=== PATIENT | male | born 1950 | race Caucasian/White ===

== ENCOUNTER 2018-11-29 12:31 | Emergency (ER) | payer MEDICARE, OTHER ==
--- NOTE | 2018-11-29 12:36 | ERPHSYRPT ---
- History of Present Illness Time Seen by Provider: 11/29/18 12:36 Source: patient Exam Limitations: no limitations Physician History: 68 y/o white male presents to ED with left eye pain after he rubbed it when he felt a piece of chicken hit his left eye while driving in his car. occurred dining room captain. Timing/Duration: today Location: left eye Severity: mild Apparent Injury: possibly Associated Symptoms: pain, burning, sensitivity to light, redness, foreign body sensation, No eyelid swelling, No decreased vision, No blurred vision, No double vision Visual Assistive Devices: None Chemical Exposure: No Welding Arc/Tanning Bed Exposure: No Allergies/Adverse Reactions: No Known Drug Allergies Allergy (Verified 11/29/18 12:46) Home Medications: No Reportable Medications [No Reported Medications] 11/29/18 [History] - Review of Systems Constitutional: No Symptoms Eyes: Eye Redness (left), Photophobia, Foreign Body Sensation Ears, Nose, & Throat: No Symptoms Respiratory: No Symptoms Cardiac: No Symptoms Abdominal/Gastrointestinal: No Symptoms Genitourinary Symptoms: No Symptoms Musculoskeletal: No Symptoms Skin: No Symptoms Neurological: No Symptoms Psychological: No Symptoms Endocrine: No Symptoms Hematologic/Lymphatic: No Symptoms Immunological/Allergic: No Symptoms All Other Systems: Reviewed and Negative - Past Medical History Pertinent Past Medical History: No Neurological History: No Pertinent History ENT History: No Pertinent History Cardiac History: No Pertinent History Respiratory History: No Pertinent History Endocrine Medical History: No Pertinent History Musculoskeletal History: No Pertinent History GI Medical History: No Pertinent History History: No Pertinent History - Past Surgical History Past Surgical History: No Neuro Surgical History: No Pertinent History Cardiac: No Pertinent History Respiratory: No Pertinent History Gastrointestinal: No Pertinent History Genitourinary: No Pertinent History Musculoskeletal: No Pertinent History Male Surgical History: No Pertinent History - Nursing Vital Signs Nursing Vital Signs: Initial Vital Signs Pulse Rate 110 H 11/29/18 12:40 Blood Pressure 172/92 11/29/18 12:40 O2 Sat by Pulse Oximetry 96 11/29/18 12:40 Pain Scale Pain Intensity 5 - Physical Exam General Appearance: no apparent distress, alert, anxiety Eye Exam: right eye: normal inspection, left eye: PERRL, EOMI, corneal abrasion (10- 11 oclock ) Ears, Nose, Throat Exam: normal ENT inspection, moist mucous membranes Neck Exam: normal inspection, non-tender, supple, full range of motion Respiratory Exam: airway intact, No chest tenderness, No respiratory distress Gastrointestinal Exam: No tenderness Extremity Exam: normal inspection, normal range of motion, pelvis stable Neurologic: alert, oriented x 3, cooperative, roll tender II-XII nml as tested Skin Exam: normal color, warm, dry Lymphatic: No adenopathy SpO2 Interpretation: normal O2 Delivery: Room Air - Course Nursing assessment & vital signs reviewed: Yes Ordered Tests: Medication Summary Discontinued Medications Generic Name Dose Route Start Last Admin Trade Name Carlos PRN Reason Stop Dose Admin Gentamicin Sulfate Confirm 11/29/18 12:45 Garamycin 0.3% Ophth Stephanie Administered 11/29/18 12:46 Dose 5 ml .ROUTE .STK-MED ONE Gentamicin Sulfate 5 ml 11/29/18 12:51 Garamycin 0.3% Ophth Stephanie OP 11/29/18 12:52 STAT ONE Tetracaine HCl Confirm 11/29/18 12:45 Tetracaine 0.5% Steri-Unit Stephanie Administered 11/29/18 12:46 Dose 4 ml OP .STK-MED ONE Tetracaine HCl 4 ml 11/29/18 12:50 Tetracaine 0.5% Steri-Unit Stephanie OP 11/29/18 12:51 STAT STA - Progress Progress: improved Counseled pt/family regarding: diagnosis, need for follow-up - Departure Departure Disposition: Home Clinical Impression: Left corneal abrasion, Left conjunctivitis Condition: Stable Critical Care Time: No Additional Instructions: may irrigate left eye using over the counter refresh solution. continue using antibiotic eye drops for 4 days-one drop into left eye every 4 hours while awake. follow up with ophthamologist for persistent or worsening symptoms
[2018-11-29] MEDS ORDERED: GARAMYCIN 0.3% OPHTH SOL ONE (12:45)
[2018-11-29] MEDS ORDERED: TETRACAINE 0.5% STERI-UNIT SOL OP ONE (12:45)
[2018-11-29] MEDS ORDERED: TETRACAINE 0.5% STERI-UNIT SOL OP STA (12:50)
[2018-11-29] MEDS ORDERED: GARAMYCIN 0.3% OPHTH SOL OP ONE (12:51)
[2018-11-29 13:16] VITALS: BP 168/77; PULSE 88; O2SAT 95
== END 2018-11-29 13:19 | disposition home or self-care (01) ==
LOC: ED 12:31
DX: S05.02XA Injury of conjunctiva and corneal abrasion without foreign body, left eye, initial encounter (principal); S00.202A Unspecified superficial injury of left eyelid and periocular area, initial encounter; W20.8XXA Other cause of strike by thrown, projected or falling object, initial encounter; Y93.89 Activity, other specified; H10.9 Unspecified conjunctivitis
CPT/HCPCS: 99283; A9270-GY

== ENCOUNTER 2023-06-06 02:43 | Emergency (ER) | payer MEDICARE, OTHER ==
[2023-06-06 03:08] VITALS: RESP 20; TEMP 98
[2023-06-06] MEDS ORDERED: NORCO 5/325 MG ONE (03:16)
[2023-06-06] MEDS: NORCO 5/325 MG PO ONE (03:17)
--- NOTE | 2023-06-06 03:19 | ERPHSYRPT ---
- History of Present Illness Time Seen by Provider: 06/06/23 03:02 Source: patient Exam Limitations: no limitations Patient Subjective Stated Complaint: pt states that since approx 1999 on Tuesday06/04/23 evening he has had a headache to his bilat occipital, crown of head, top of head forming a nepali like pattern that radiates down to posterior upper neck. states that last night he was unable to get to sleep then dozed for a while and was woken up by the pain which is at its most severe at this time. Triage Nursing Assessment: pt ambulated into room 8 independently with slow steady gait after standing on scale for weight acquisition. pt is alert and oriented times three, very [id number], able to speak in complete sentences, able to move all extremities within normal limits without weakness, and with resp even and unlabored. bilat pupils are 2mm, equal, round, and reactive to light- when pupils are shielded from light for several seconds size increased to approx 3mm. denies sob, difficulty breathing, lightheadedness, dizziness, n/v, diarrhea, change in appetite, difficulty with urination or bowel elimination, weakness, numbness, or tingling. bilat upper and lower extremities with strength, color, cap refill, and sensation all within normal limits. Physician History: Since about 31 hours ago pt has had a constant sharp/dull generalized headache up to 9/10 in severity; denies fever, cough, chest pain, shortness of air, nausea, vomiting. Allergies/Adverse Reactions: No Known Drug Allergies Allergy (Verified 06/06/23 02:49) Home Medications: Lisinopril 5 mg [Zestril 5 MG] 5 mg PO HS 06/06/23 [History] Metformin HCl 500 mg [Glucophage 500 MG] 2 tab PO BIDWM 06/06/23 [History] Semaglutide [Ozempic] 0.25 mg SQ WEEKLY 06/06/23 [History] Hx Tetanus, Diphtheria Vaccination/Date Given: Yes Hx Influenza Vaccination/Date Given: No Hx Pneumococcal Vaccination/Date Given: No Immunizations Up to Date: Yes Travel Risk - International Travel Have you traveled outside of the country in past 3 weeks: No - Coronavirus Screening Are you exhibiting any of the following symptoms?: No Close contact with a COVID-19 positive Pt in past 14-21 Days: No - Vaccine Status Have you recieved a Covid-19 vaccination: No - Review of Systems Constitutional: No Fever Respiratory: No Cough, No Dyspnea Cardiac: No Chest Pain Abdominal/Gastrointestinal: No Nausea, No Vomiting Neurological: Headache - Past Medical History Pertinent Past Medical History: Yes Neurological History: No Pertinent History ENT History: No Pertinent History Cardiac History: Hypertension Respiratory History: No Pertinent History Endocrine Medical History: Diabetes Type II Musculoskeletal History: No Pertinent History GI Medical History: No Pertinent History History: No Pertinent History Psycho-Social History: No Pertinent History Male Reproductive Disorders: No Pertinent History - Past Surgical History Past Surgical History: Yes Neuro Surgical History: No Pertinent History Cardiac: No Pertinent History Respiratory: No Pertinent History Gastrointestinal: No Pertinent History Genitourinary: No Pertinent History Musculoskeletal: Joint Replacement Male Surgical History: No Pertinent History Other Surgical History: left hip and thigh - Social History Smoking Status: Never smoker Exposure to second hand smoke: No Drug Use: none Patient Lives Alone: Yes - Nursing Vital Signs Nursing Vital Signs: Initial Vital Signs Pulse Rate 104 H 06/06/23 02:50 Respiratory Rate 18 06/06/23 02:50 Blood Pressure 186/97 06/06/23 02:50 O2 Sat by Pulse Oximetry 96 06/06/23 02:50 Pain Scale Pain Intensity 6 - Physical Exam General Appearance: alert Eye Exam: other (pupils 2mm diameter; eomi) Ears, Nose, Throat Exam: TMs normal Neck Exam: normal inspection Respiratory Exam: lungs clear Cardiovascular Exam: normal heart sounds Gastrointestinal/Abdominal Exam: normal bowel sounds Extremity Exam: normal range of motion Mental Status Exam: alert, oriented x 3, cooperative cloth tester Exam: normal speech Motor/Sensory Exam: no motor deficit, no sensory deficit Skin Exam: warm, dry SpO2 Interpretation: normal SpO2: 96 O2 Delivery: Room Air - Course Nursing assessment & vital signs reviewed: Yes - CT Exams Head CT Interpretation: Tele-radiologist Report (No acute cerebral insult on CT bases. 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 Brain senile involutional changes. The senile changes with microvascular changes are interval new findings.) Ordered Tests: Active Orders 24 hr Category Date Time Status HEAD WITHOUT CONTRAST [CT] Stat Exams 06/06/23 03:13 Completed Medication Summary Discontinued Medications Generic Name Dose Route Start Last Admin Trade Name Freq PRN Reason Stop Dose Admin Hydrocodone Bitart/Acetaminophen 2 tab 02/12/24 03:14 06/06/23 03:17 Hydrocodone/Apap 5/325 1 Tab Tablet PO 06/06/23 03:15 2 tab STAT ONE Administration Hydrocodone Bitart/Acetaminophen Confirm 06/06/23 03:16 Hydrocodone/Apap 5/325 1 Tab Tablet Administered 06/06/23 03:17 Dose 2 tab .ROUTE .STK-MED ONE Nitroglycerin 0.4 mg 06/06/23 03:18 06/06/23 03:21 Nitroglycerin 0.4 Mg (Ed) 0.4 Mg Tab.Subl SL 06/06/23 03:19 Not Given STAT ONE - Progress Progress: improved Counseled pt/family regarding: diagnosis, need for follow-up, rad results Medical Desision Making - Diagnostic Testing Diagnostic test were ordered, analyzed, and reviewed by me: Yes Radiological Interpretation: Teleradiologist Report - Departure Departure Disposition: Home Clinical Impression: Headache Condition: Stable Critical Care Time: No Referrals: LILIYA CONCEPCION MD [Primary Care Provider] - Follow up/PCP as directed Additional Instructions: Follow up with private doctor tomorrow.
[2023-06-06] MEDS: Nitrostat 0.4 MG (ED) SL ONE (03:21)
--- NOTE | 2023-06-06 04:04 | XRAY ---
CLINICAL HISTORY: pain TECHNIQUE: Axial non-contrast CT scan of the brain was performed from the skull base to the high parietal region. COMPARISON: 12/15/2007 CT. FINDINGS: Exaggerated periventricular white matter hypodensity denoting hypoperfusion. The ventricular system and cortical sulci as well as basal cisterns are prominent consistent with senile changes. No calvarial fracture lines or depressed bony segments. No intra or extra axial areas of acute blood densities or collections. No midline shifts or deformity. Foci of faint right basal ganglia calcifications. Otherwise, unremarkable posterior fossa structures namely brainstem and cerebellum. Mild deviation of the nasal septum to the right side. IMPRESSION: 1. No acute cerebral insult on CT bases. 2. 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 3. Brain senile involutional changes. 4. The senile changes with microvascular changes are interval new findings. Electronically Signed by: Flavio Esposito MD. (06/06/2023 03:59:56 EST)
[2023-06-06 04:08] VITALS: BP 143/79; PULSE 99
[2023-06-06 04:21] VITALS: O2SAT 96
== END 2023-06-06 04:32 | disposition home or self-care (01) ==
LOC: ED 02:43
DX: R51.9 Headache, unspecified (principal); I10 Essential (primary) hypertension; E11.9 Type 2 diabetes mellitus without complications; Z79.84 Long term (current) use of oral hypoglycemic drugs; Z79.85 Long-term (current) use of injectable non-insulin antidiabetic drugs; Z79.899 Other long term (current) drug therapy; Z28.310 Unvaccinated for COVID-19
CPT/HCPCS: 70450; 99283; A9270-GY

== ENCOUNTER 2024-11-19 01:17 | Emergency (ER) | payer MEDICARE ==
--- NOTE | 2024-11-19 01:24 | ERPHSYRPT ---
- History of Present Illness Time Seen by Provider: 11/19/24 01:24 Source: patient, family Exam Limitations: no limitations Physician History: This is a 74-year-old white male patient who arrives by private vehicle and is a patient Dr. Goel with a complaint of lightheadedness and weakness for 3 days. Patient recalls stretching out his back and neck when he felt a pop in his left neck. He states he noticed dizziness at that time. Patient family member stated that this patient has had intermittent dizziness and lightheadedness for several years. Patient does have a history of hypertension and hyperlipidemia as well as diabetes. Patient states that he stopped his diabetic medication approximately 8 months ago and is using a concoction that is supposed to help control blood sugar that you drink. Patient denies chest pain. Patient denies shortness of breath. Patient denies headache. He does not have a history of head injury. He has had no nausea vomiting or diarrhea symptoms. Timing/Duration: day(s) (3) Severity: mild Associated Symptoms: weakness, No nausea, No vomiting, No abdominal pain, No shortness of breath, No chest pain, No headaches Allergies/Adverse Reactions: No Known Drug Allergies Allergy (Verified 11/19/24 01:22) Home Medications: Atorvastatin Calcium 20 mg PO DAILY 11/19/24 [History] Empagliflozin [Jardiance] 10 mg PO DAILY 11/19/24 [History] Hx Tetanus, Diphtheria Vaccination/Date Given: Yes Hx Influenza Vaccination/Date Given: No Hx Pneumococcal Vaccination/Date Given: No Travel Risk - International Travel Have you traveled outside of the country in past 3 weeks: No - Emerging Infectious Disease Are you exhibiting symptoms associated with any current EIDs: No - Review of Systems Constitutional: Weakness Eyes: No Symptoms Ears, Nose, & Throat: No Symptoms Respiratory: No Symptoms Cardiac: No Symptoms Abdominal/Gastrointestinal: No Symptoms Genitourinary Symptoms: No Symptoms Musculoskeletal: No Symptoms Neurological: Dizziness, Other (Lightheadedness) Psychological: No Symptoms Endocrine: No Symptoms Hematologic/Lymphatic: No Symptoms Immunological/Allergic: No Symptoms All Other Systems: Reviewed and Negative - Past Medical History Pertinent Past Medical History: Yes Neurological History: No Pertinent History ENT History: No Pertinent History Cardiac History: Hypertension Respiratory History: No Pertinent History Endocrine Medical History: Diabetes Type II Musculoskeletal History: No Pertinent History GI Medical History: No Pertinent History History: No Pertinent History Psycho-Social History: No Pertinent History Male Reproductive Disorders: No Pertinent History - Past Surgical History Past Surgical History: Yes Neuro Surgical History: No Pertinent History Cardiac: No Pertinent History Respiratory: No Pertinent History Gastrointestinal: No Pertinent History Genitourinary: No Pertinent History Musculoskeletal: Joint Replacement Male Surgical History: No Pertinent History Other Surgical History: left hip and thigh - Social History Smoking Status: Never smoker Exposure to second hand smoke: No Drug Use: none Patient Lives Alone: Yes - Nursing Vital Signs Nursing Vital Signs: Initial Vital Signs Temperature 97.4 F 11/19/24 01:25 Pulse Rate 98 H 11/19/24 01:25 Respiratory Rate 18 11/19/24 01:25 Blood Pressure 175/90 11/19/24 01:25 O2 Sat by Pulse Oximetry 96 11/19/24 01:25 Pain Scale Pain Intensity 0 - Physical Exam General Appearance: no apparent distress, alert Eye Exam: PERRL/EOMI, eyes nml inspection Ears, Nose, Throat Exam: normal ENT inspection, moist mucous membranes Neck Exam: normal inspection, non-tender, supple, full range of motion Respiratory Exam: normal breath sounds, lungs clear, airway intact, No chest tenderness, No respiratory distress Cardiovascular Exam: regular rate/rhythm, normal heart sounds, normal peripheral pulses Gastrointestinal/Abdomen Exam: soft, normal bowel sounds, No tenderness Rectal Exam: not done Back Exam: normal inspection, normal range of motion, No CVA tenderness, No vertebral tenderness Extremity Exam: normal inspection, normal range of motion, pelvis stable Neurologic Exam: alert, oriented x 3, cooperative, medical collections representative II-XII nml as tested, normal mood/affect, nml cerebellar function, nml station & gait, sensation nml Skin Exam: normal color, warm, dry Lymphatic Exam: No adenopathy SpO2 Interpretation: normal O2 Delivery: Room Air - Course Nursing assessment & vital signs reviewed: Yes EKG Interpreted by Me: RATE (94), Right [place] Deviation (Borderline), NORMAL INTERVALS, NORMAL QRS, Other (QTc 455. No acute ischemia) Ordered Tests: Active Orders 24 hr Category Date Time Status Engineering Director STAT Care 11/19/24 01:50 Active EKG-ER Only STAT Care 11/19/24 01:49 Active IV Insertion STAT Care 11/19/24 01:49 Active HEAD WITHOUT CONTRAST [CT] Stat Exams 11/19/24 01:49 Completed CBC W DIFF Stat Lab 11/19/24 01:59 Completed CMP Stat Lab 11/19/24 01:59 Completed ETHYL ALCOHOL Stat Lab 11/19/24 01:59 Completed MAGNESIUM Stat Lab 11/19/24 01:59 Completed TROPONIN Q4H Lab 11/19/24 01:59 Completed TROPONIN Q4H Lab 11/19/24 06:00 Ordered TROPONIN Q4H Lab 11/19/24 10:00 Ordered UA W/RFX UR CULTURE Stat Lab 11/19/24 04:12 Completed Medication Summary Generic Name Dose Route Start Last Admin Trade Name Freq PRN Reason Stop Dose Admin Sodium Chloride 1,000 mls @ 100 mls/hr 11/19/24 02:00 11/19/24 02:34 Sodium Chloride 0.9% 1000 Ml IV 12/19/24 01:59 100 mls/hr .Q10H JAME Administration Discontinued Medications Generic Name Dose Route Start Last Admin Trade Name Freq PRN Reason Stop Dose Admin Enalaprilat 1.25 mg 11/19/24 02:34 11/19/24 03:20 Enalaprilat 2.5 Mg Injection IV 11/19/24 02:35 Not Given STAT ONE Enalaprilat Confirm 11/19/24 02:48 Enalaprilat 2.5 Mg Injection Administered 11/19/24 02:49 Dose 2.5 mg IV .STK-MED ONE Meclizine HCl 25 mg 11/19/24 03:05 11/19/24 03:22 Meclizine Hcl 25 Mg Tablet PO 11/19/24 03:06 25 mg STAT ONE Administration Meclizine HCl Confirm 11/19/24 03:21 Meclizine Hcl 25 Mg Tablet Administered 11/19/24 03:22 Dose 25 mg .ROUTE .STK-MED ONE Lab/Rad Data: Laboratory Result Diagrams 11/19/24 01:59 11/19/24 01:59 Laboratory Results 11/19/24 11/19/24 11/19/24 Range/Units 04:12 01:59 01:59 WBC (4.23-9.07) x10^3/uL RBC (4.63-6.08) x10^6/uL Hgb (13.7-17.5) g/dL Hct (40.1-51.0) % MCV (79.0-92.2) fL MCH (25.7-32.2) pg MCHC (32.3-36.5) g/dL RDW (11.6-14.4) % Plt Count (163-337) x10^3/uL MPV (9.4-12.4) fL Gran % (34.0-67.9) % Immature Gran % (Auto) (0.001-0.429) % Nucleat RBC Rel Count (0.00-0.2) % Eos # (Auto) (0.04-0.54) x10^3/uL Immature Gran # (Auto) (0.001-0.031) x10^3u/L Absolute Lymphs (auto) (1.32-3.57) x10^3/uL Absolute Monos (auto) (0.30-0.82) x10^3/uL Absolute Nucleated RBC (0.00-0.012) x10^3u/L Lymphocytes % (21.8-53.1) % Monocytes % (5.3-12.2) % Eosinophils % (0.8-7.0) % Basophils % (0.2-1.2) % Absolute Granulocytes (1.78-5.38) x10^3/uL Basophils # (0.01-0.08) x10^3/uL Sodium 136 (135-145) mmol/L Potassium 4.0 (3.5-5.1) mmol/L Chloride 102 (98-107) mmol/L Carbon Dioxide 27 (22-30) mmol/L Anion Gap 10.2 (5-15) MEQ/L BUN 26 H (9-20) mg/dL Creatinine 0.87 (0.66-1.25) mg/dL Estimated GFR 90.5 ML/MIN Glucose 290 H (74-106) mg/dL Calcium 9.4 (8.4-10.2) mg/dL Magnesium 1.7 (1.6-2.3) mg/dL Total Bilirubin 0.70 (0.2-1.3) mg/dL AST 26 (17-59) U/L ALT 27 (0-50) U/L Alkaline Phosphatase 121 (38-126) U/L Troponin I < 0.012 (0.000-0.033) ng/mL Serum Total Protein 6.8 (6.3-8.2) g/dL Albumin 3.9 (3.5-5.0) g/dL Urine Color Yellow (Yellow) Urine Appearance Clear (Clear) Urine pH 5.0 (4.6-8.0) Ur Specific [place] 1.025 (1.005-1.030) Urine Protein 100 A (Negative) Urine Glucose (UA) >=1000 A (Negative) mg/dL Urine Ketones Trace A (Negative) Urine Blood Trace (Negative) Urine Nitrite Negative (Negative) Urine Bilirubin Negative (Negative) Urine Urobilinogen 1.0 A (0.2) mg/dL Ur Leukocyte Esterase Negative (Negative) U Hyaline Cast (Auto) NONE SEEN (0-2) /LPF Urine Microscopic RBC 0-2 (0-5) /HPF Urine Microscopic WBC 0-2 (0-5) /HPF Ur Epithelial Cells None Seen (None Seen) /HPF Urine Bacteria None Seen (None Seen) /HPF Urine Culture Reflexed NO (NO) Ethyl Alcohol < 10 (0-10) mg/dL 11/19/24 Range/Units 01:59 WBC 7.8 (4.23-9.07) x10^3/uL RBC 4.99 (4.63-6.08) x10^6/uL Hgb 16.0 (13.7-17.5) g/dL Hct 46.0 (40.1-51.0) % MCV 92.2 (79.0-92.2) fL MCH 32.1 (25.7-32.2) pg MCHC 34.8 (32.3-36.5) g/dL RDW 13.1 (11.6-14.4) % Plt Count 181 (163-337) x10^3/uL MPV 11.1 (9.4-12.4) fL Gran % 63.5 (34.0-67.9) % Immature Gran % (Auto) 0.4 (0.001-0.429) % Nucleat RBC Rel Count 0.0 (0.00-0.2) % Eos # (Auto) 0.24 (0.04-0.54) x10^3/uL Immature Gran # (Auto) 0.03 (0.001-0.031) x10^3u/L Absolute Lymphs (auto) 1.90 (1.32-3.57) x10^3/uL Absolute Monos (auto) 0.66 (0.30-0.82) x10^3/uL Absolute Nucleated RBC 0.00 (0.00-0.012) x10^3u/L Lymphocytes % 24.2 (21.8-53.1) % Monocytes % 8.4 (5.3-12.2) % Eosinophils % 3.1 (0.8-7.0) % Basophils % 0.4 (0.2-1.2) % Absolute Granulocytes 4.98 (1.78-5.38) x10^3/uL Basophils # 0.03 (0.01-0.08) x10^3/uL Sodium (135-145) mmol/L Potassium (3.5-5.1) mmol/L Chloride (98-107) mmol/L Carbon Dioxide (22-30) mmol/L Anion Gap (5-15) MEQ/L BUN (9-20) mg/dL Creatinine (0.66-1.25) mg/dL Estimated GFR ML/MIN Glucose (74-106) mg/dL Calcium (8.4-10.2) mg/dL Magnesium (1.6-2.3) mg/dL Total Bilirubin (0.2-1.3) mg/dL AST (17-59) U/L ALT (0-50) U/L Alkaline Phosphatase (38-126) U/L Troponin I (0.000-0.033) ng/mL Serum Total Protein (6.3-8.2) g/dL Albumin (3.5-5.0) g/dL Urine Color (Yellow) Urine Appearance (Clear) Urine pH (4.6-8.0) Ur Specific [place] (1.005-1.030) Urine Protein (Negative) Urine Glucose (UA) (Negative) mg/dL Urine Ketones (Negative) Urine Blood (Negative) Urine Nitrite (Negative) Urine Bilirubin (Negative) Urine Urobilinogen (0.2) mg/dL Ur Leukocyte Esterase (Negative) U Hyaline Cast (Auto) (0-2) /LPF Urine Microscopic RBC (0-5) /HPF Urine Microscopic WBC (0-5) /HPF Ur Epithelial Cells (None Seen) /HPF Urine Bacteria (None Seen) /HPF Urine Culture Reflexed (NO) Ethyl Alcohol (0-10) mg/dL - Progress Progress: improved, re-examined Progress Note: 11/19/24 02:39 My medical decision making and the assignment of moderate complexity of this patient's medical issue today is based on review of the patient's past medical history, review the patient's medication list, reviewed patient drug allergy list, history present illness and physical findings on examination. The workup in this patient includes placement of intravenous line, infusion of low rate crystalloid, CBC, CMP, troponin level, twelve-lead EKG, urinalysis, ethyl alcohol level, CT scan of the head without contrast. Differential diagnosis includes but is not limited to anemia, arrhythmia, myocardial infarction, acute intracranial abnormality, dehydration, urinary tract infection, sinus infection 11/19/24 02:55 CT scan of the head without contrast was interpreted by the radiologist and I reviewed the impression. The impression states no acute abnormality detected in this plain CT scan of head. There are chronic microvascular ischemic changes. There is senile cortical atrophy. No change when compared to prior study dated 06/06/2023 Medical Desision Making - Independent Historian Additional History obtained from: Family - Risk of complications Low Risk: Low risk of morbidity from additional dx testing or treatment The pt has a mod risk of morbidity or mortality based on: Need for prescription drug management - Departure Departure Disposition: Home Clinical Impression: Dizziness, Hyperglycemia, Lightheadedness Condition: Stable Critical Care Time: No Referrals: RUBI GOEL [Primary Care Provider, [facility]] - Follow up/PCP as directed Additional Instructions: Drink plenty of fluids. Monitor your blood sugar more closely and take your blood sugar medicine as prescribed. Call your primary care provider today, 11/11/2024, to make arrangement for follow-up appointment for further evaluation management Prescriptions: Meclizine HCl 25 mg [Antivert 25 mg] 25 mg PO Q8H PRN #10 tablet PRN Reason: Dizziness
[2024-11-19 01:31] VITALS: TEMP 97.4
[2024-11-19 02:02] LABS: BASOPHIL % 0.4 % (0.2-1.2); Basophil (Absolute #) 0.03 x10^3/uL (0.01-0.08); Eosinophil (Absolute #) 0.24 x10^3/uL (0.04-0.54); Hematocrit 46.0 % (40.1-51.0); Hemoglobin 16.0 g/dL (13.7-17.5); IMMATURE GRAN # 0.03 x10^3u/L (0.001-0.031); IMMATURE GRAN % 0.4 % (0.001-0.429); Lymphocyte (Absolute #) 1.90 x10^3/uL (1.32-3.57); Mean Corpuscular Hemoglobin 32.1 pg (25.7-32.2); Mean Corpuscular Hgb Concent. 34.8 g/dL (32.3-36.5); Monocyte (Absolute #) 0.66 x10^3/uL (0.30-0.82); NUCLEATED RBC # 0.00 x10^3u/L (0.00-0.012); NUCLEATED RBC % 0.0 % (0.00-0.2); Platelet Count 181 x10^3/uL (163-337); Red Blood Count 4.99 x10^6/uL (4.63-6.08); White Blood Count 7.8 x10^3/uL (4.23-9.07)
[2024-11-19 02:16] LABS: Calcium 9.4 mg/dL (8.4-10.2); Carbon Dioxide 27 mmol/L (22-30); Creatinine 1 0.87 mg/dL (0.66-1.25); EST GLOMERULAR FILTRATION RATE 90.5 ML/MIN; ETHYL ALCOHOL < 10 mg/dL (0-10); Glucose 290 mg/dL (74-106); Potassium 4.0 mmol/L (3.5-5.1); SGOT/AST 26 U/L (17-59); SGPT/ALT 27 U/L (0-50); Total Protein 6.8 g/dL (6.3-8.2)
--- NOTE | 2024-11-19 02:45 | XRAY ---
CLINICAL HISTORY: Lightheadedness; dizziness COMPARISON: 06/06/2023 TECHNIQUE: Axial noncontrast CT scan of the brain was performed from the skull base to the high parietal region .One of the following dose reduction techniques were utilized for this exam: Automated exposure control, adjustment of the mA and/or kV according to patient size, use of iterative reconstruction. FINDINGS: There are ill-defined iso-to hypodense areas noted in the subcortical and periventricular white matter bilaterally, suggestive of microvascular ischemic changes. The ventricular system, cortical sulci and basal cisterns are prominent consistent with senile changes. The visualized brain parenchyma shows normal appearance. Huertas-white matter differentiation is maintained. No midline shifts or deformity. No intracerebral or extra axial hematoma. Normal size and configuration of the cerebral ventricles. Normal CT appearance of the posterior fossa structures namely the cerebellar hemispheres, brainstem and cerebellar peduncles. The cerebello-pontine angles are clear. Hyperostosis frontalis interna noted. Right sided nasal septal deviation with left nasal spur. The scanned paranasal sinuses are clear. Bilateral mastoid air cells appear unremarkable. Hyperostosis frontalis interna. IMPRESSION: No acute abnormality detected in plain CT head Chronic microvascular ischemic changes and senile cortical atrophy No significant interval changes since previous study. Electronically Signed by: Flavio Esposito MD. (11/19/2024 02:42:22 EDT)
[2024-11-19] MEDS ORDERED: ENALAPRILAT 2.5 MG INJECTION IV ONE (02:48)
[2024-11-19] MEDS: ENALAPRILAT 2.5 MG INJECTION IV ONE (03:20)
[2024-11-19] MEDS ORDERED: ANTIVERT 25 MG ONE (03:21)
[2024-11-19] MEDS: ANTIVERT 25 MG PO ONE (03:22)
[2024-11-19 04:12] VITALS: RESP 18
[2024-11-19 04:31] LABS: Glucose, Urine >=1000 mg/dL (Negative); Protein,Urine Dip 100 (Negative); RBC 0-2 /HPF (0-5); WBC 0-2 /HPF (0-5)
[2024-11-19 04:54] VITALS: BP 137/72; PULSE 88; O2SAT 95
== END 2024-11-19 04:53 | disposition home or self-care (01) ==
LOC: ED 01:17
DX: R42 Dizziness and giddiness (principal); E11.65 Type 2 diabetes mellitus with hyperglycemia; R53.1 Weakness; I10 Essential (primary) hypertension; Z79.899 Other long term (current) drug therapy